=== PATIENT | male | born 1965 | race Caucasian/White ===

== ENCOUNTER 2020-09-21 14:57 | Outpatient (CLI) | payer BC, SELFPAY ==
--- NOTE | 2020-09-21 15:07 | DI.RAD_ITS ---
Exam(s) XR SHOULDER LT COMPLETE 2+V EXAM: XR SHOULDER LT COMPLETE 2+V CLINICAL HISTORY: PAIN LT SHOUDLER M25.512 TECHNIQUE: COMPARISON: No exams were available for comparison FINDINGS: Five views were obtained. There is moderate narrowing of the cartilaginous joint space of the glenoh umeral joint. There is mild subchondral sclerosis the glenoid. Mild marginal osteophyte formation o f glenoid noted inferiorly. Mild degenerative changes of the AC joint also noted. Humeral head appe ars essentially intact. IMPRESSION: DJD glenohumeral joint as described above. RADIATION DOSE DELIVERED: Total DLP
== END 2020-09-21 15:17 ==
PROVIDERS: Visit Provider Physician Assistant Medical
DX: M19.012 Primary osteoarthritis, left shoulder (principal)
CPT/HCPCS: 73030

== ENCOUNTER 2021-05-06 02:12 | Outpatient (CLI) | payer BC, SELFPAY ==
--- NOTE | 2021-05-06 06:30 | DI.MRI_ITS ---
Exam(s) MR UPPER JOINT LT WO EXAM: MR UPPER JOINT LT WO CLINICAL HISTORY: L SHOULDER PAIN,tendinitis lt shoulder,slap lesion,m75.22,s43.432a TECHNIQUE: Multiplanar multisequence MRI of the shoulder was performed. COMPARISON: CR XR SHOULDER LT COMPLETE 2+V from 09/21/2020 FINDINGS: Plain films of September 2020 were reviewed MARROW:There is no evidence of fracture, Hill-Sachs deformity, nor osseous Bankart lesion. However, there is a conglomeration of degenerative cysts evident in the posterolateral aspect of the humeral h ead, measuring 2.3 cm craniocaudal by 1 cm wide by 1 cm AP. There is only minimal surrounding bone e adalid. There is also small degenerative subarticular cyst in the osseous glenoid. ROTATOR CUFF MECHANISM: AC JOINT/ACROMIUM: Minimal degenerative changes.. There is no evidence of os acromiale. Supraspinatus: Tendinosis. There is small focus of signal abnormality on the articular side of the s upraspinatus at approximately the mid humeral head level. Probably small partial-thickness tear. Al so some increased signal the tendon above the greater tuberosity but no full-thickness tear. In vincent tion to the above described prominent degenerative cysts in the posterior humeral head there is also a smaller 4 millimeter degenerative cyst in the superior aspect of the humerus subjacent to the supra spinatus. There is no evidence of supraspinatus atrophy. There is a sliver of fluid in the subacrom ial bursa. Infraspinatus: Intact. No evidence of tear nor muscle atrophy. Teres Minor: Intact. No evidence of tear nor muscle atrophy. Subscapularis/anterior cuff: Intact. No abnormal signal at the level of the multipennate insertional fibers. No significant tear nor atrophy. BICEPS TENDON: Exhibits normal position within the intertubercular groove, although there is a small amount of fluid within the tendon sheath at this level. The intra-articular aspect of the biceps aniceto ears intact LABRUM: There is a thin line of fluid signal in the superior labrum posterior to the biceps tendon at tachment site this is seen on 2 consecutive coronal images and may represent an element of SLAP-tear versus sublabral recess. There is also some mild signal abnormality in the posterior labrum. Anteri or labrum including anteroinferior aspect appears intact. Inferior labrum appears intact as does the inferior glenohumeral ligament. There is no evidence of paralabral cyst. GLENOHUMERAL JOINT: Mild degenerative changes. No joint effusion nor obvious loose intra-articular b odies. No chondral defects. No osteophytes. Degenerative subarticular cysts as described above. No evidence of capsular tear. The inferior glenohumeral ligament is intact. QUADRILATERAL SPACE: No evidence of mass in the region of the axillary nerve and dorsal circumflex hu meral vessels. Visualized triceps muscle at this level appears unremarkable. IMPRESSION: 1. In this patient who has apparently had remote left shoulder surgery there is mild tendinosis signa l evident in the supraspinatus and at the mid humeral head level there is a small area of signal abno rmality on the articular side surface of the supraspinatus which may be a small partial-thickness tea r. Although there is a sliver of fluid in the subacromial bursa, does not appear to be evidence of a full-thickness tear of the supraspinatus. Other muscles of the rotator cuff mechanism are intact. 2. Biceps tendon is intact and nondisplaced. Contains a small amount of fluid in its tendon sheath w ithin the intertubercular groove. 3. Subtle evidence of SLAP-type tear in the superior labrum versus anatomic inferior recess. No evid ence of paralabral cyst. 4. No evidence of prominent joint effusion or loose intra-articular body. There are mild degenerati ve changes. No osteophytes. However, there is a conglomeration of degenerative subarticular cysts i n the posterior aspect of the humeral head at and subjacent to the greater tuberosity level. There i s minimal surrounding bone edema. DATA REPOSITORY:
== END 2021-05-06 02:32 ==
PROVIDERS: PCP Family Medicine; Visit Provider Student in an Organized Health Care Education/Training Program
DX: M25.512 Pain in left shoulder; M75.22 Bicipital tendinitis, left shoulder; M75.82 Other shoulder lesions, left shoulder; S43.432A Superior glenoid labrum lesion of left shoulder, initial encounter; M19.012 Primary osteoarthritis, left shoulder; X58.XXXA Exposure to other specified factors, initial encounter
CPT/HCPCS: 73221

== ENCOUNTER 2021-05-19 07:34 | Emergency (ER) | payer BC, SELFPAY ==
[2021-05-19] VITALS (30 sets, daily range): BP systolic 114–140; BP diastolic 65–81; PULSE 62–79; RESP 12–28; TEMP 36.3; O2SAT 97–100
--- NOTE | 2021-05-19 07:30 | RT.EKG_ITS ---
APPROVED REPORT Exam: Resting ECG Reason for Exam: chest tightness Patient Location: E HR:72 bpm ECG Measurements Heart Rate 72 AXIS MD 184 P 104 QRSd 123 QRS 29 QT 413 T 32 QTc 453 Conclusion Sinus rhythm...normal P axis, V-rate 60- 99 IVCD, consider RBBB...QRSd>120mS, terminal axis(90,270). Sinus. RBBB, no STEMI. I have reviewed and interpreted ECG and agree with software generated interpretation.
--- NOTE | 2021-05-19 07:47 | ED.GENADUL_ITS ---
Discharge Plan Disposition Patient Disposition: HOME Condition: Improving Discharge Details Clinical Impression: Confusion, Chest pain Primary Care Provider: Roby Sheriff ED Provider: Ledy Pugh Home Meds and New Rx's Prescriptions: New sucralfate [Carafate] 1 gram tablet 1 gm PO QACHS Qty: 14 0RF Discharge Instructions Instructions: Chest Pain (ED), Diet for Stomach Ulcers and Gastritis (ED), GERD (Gastroesophageal Reflux Disease) (ED), Altered Mental Status (ED) Additional Instructions: Your lab work, EKGs and imaging today is reassuring and shows no evidence of acute concerning or significant findings. Call your primary care doctor's office tomorrow to schedule follow-up appointment for reevaluation and for referral for other outpatient studies such as MRI brain for your confusion and/or a stress test and/or upper endoscopy for your chest pain for further evaluations of your symptoms if they persist or worsen. You were given a prescription for Carafate which can help with chest or abdominal pain related to a stomach ulcer. If you have any return of your chest pain, you can consider taking an [id number] Pepcid or Prilosec in addition to Carafate as needed. Return immediately to the emergency department if you develop any worsening or new concerning symptoms. You were tested for the COVID-19 virus today. Please quarantine until your Covid test result is available and if confirmed to be negative. Discharge Data Discharge Date/Time-TO BE ENTERED AT DEPARTURE: 05/19/21 12:34 Discharge Physician: Ledy Pguh Medical Decision Making 0800 -- 55-year-old male with no significant past medical history who presents to the ED with a complaint of feeling off all day yesterday , and an episode of sweating and substernal chest tightness after awakening this morning. He denies any chest pain at present and states he still feels off . Vitals are within normal limits. EKG notes a rate of 72, sinus, right bundle branch block, no STEMI. Patient appears somewhat slowed in his responses but otherwise has no focal deficits and is oriented x3. Differential diagnosis includes dehydration, electrolyte abnormality, seizure, CVA, anxiety, panic attack, GERD, gastritis, etc. History and presentation does not appear consistent with ACS or dissection. Considering his age, will obtain screening labs, plan for delta troponin, and obtain CTA head and neck and chest x-ray and give a dose of Pepcid and Ativan and reassess. 1000 --labs and imaging reviewed and unremarkable. Normal white blood cell count. Normal electrolytes. Troponin negative. TSH within normal limits. Urinalysis negative. Chest x-ray and CTA head and neck negative. 1130 --repeat EKG unchanged. Repeat troponin negative. Patient reassessed and he states he feels better. He denies any return of chest pain and has had no chest pain while in the emergency department. Patient states he feels comfortable going home. He was advised to limit alcohol and potential allergic triggers. Discussed that his history and presentation does not appear consistent with acute CVA or ACS, but recommended to follow-up with the PCP this week for reevaluation and consideration for outpatient brain MRI if his confusion symptoms persist and/or EGD/stress test if his chest pain persists or worsens. A prescription for Carafate was given. Usual and customary return precautions given prior to discharge. Medical Records Medical records reviewed: Yes I reviewed the patient's medical records. Imaging Data Radiologic Study: Radiologist's impression: CT Angiography Head With Contrast, Arteriography Exam date and time: 05/19/2021 8:30 AM Age: 55 years old Clinical indication: Pain; Other: Dizziness, confusion, R/O acute CVA TECHNIQUE: Imaging protocol: Computed tomography angiography of the head with contrast. Exam focused on the arteries. 3D rendering (Not supervised by radiologist): MIP and/or 3D reconstructed images were created by the technologist. Contrast material: OMNIPAQUE 350; Contrast volume: 100 ml; Contrast route: INTRAVENOUS (IV);? COMPARISON: MR UPPER JOINT LT WO 05/06/2021 8:47 AM FINDINGS: ANTERIOR CIRCULATION: Right internal carotid artery: Unremarkable. Intracranial segment is patent with no significant stenosis. No aneurysm. Right middle cerebral artery: Unremarkable. No occlusion or significant stenosis. No aneurysm.? Right anterior cerebral artery: Unremarkable. No occlusion or significant stenosis. No aneurysm.? Left internal carotid artery: Unremarkable. Intracranial segment is patent with no significant stenosis. No aneurysm. Left middle cerebral artery: Unremarkable. No occlusion or significant stenosis. No aneurysm.? Left anterior cerebral artery: Unremarkable. No occlusion or significant stenosis. No aneurysm.? POSTERIOR CIRCULATION: Right vertebral artery: Unremarkable. No occlusion or significant stenosis. No aneurysm.? Left vertebral artery: Unremarkable. No occlusion or significant stenosis. No aneurysm.? Basilar artery: Unremarkable. No occlusion or significant stenosis. No aneurysm. Right posterior cerebral artery: Unremarkable. No occlusion or significant stenosis. No aneurysm.? Left posterior cerebral artery: Unremarkable. No occlusion or significant stenosis. No aneurysm.? Brain: No definite mass, mass effect, or midline shift. Cerebral ventricles: No ventriculomegaly. Bones/joints: Unremarkable. No acute fracture. Soft tissues: Unremarkable. IMPRESSION: No large vessel stenosis or occlusion. CT Angiography Neck With Contrast Exam date and time: 05/19/2021 8:30 AM Age: 55 years old Clinical indication: Pain; Other: Dizziness, confusion, R/O acute CVA TECHNIQUE: Imaging protocol: Computed tomography angiography of the neck with contrast. 3D rendering (Not supervised by radiologist): MIP and/or 3D reconstructed images were created by the technologist. Contrast material: OMNIPAQUE 350; Contrast volume: 100 ml; Contrast route: INTRAVENOUS (IV);? COMPARISON: MR UPPER JOINT LT WO 05/06/2021 8:47 AM FINDINGS: Right common carotid artery: No stenosis. No dissection or occlusion. Right internal carotid artery: No stenosis of the extracranial segment. No dissection or occlusion. Right external carotid artery: No occlusion or stenosis of the origin.? Left common carotid artery: No stenosis. No dissection or occlusion. Left internal carotid artery: No stenosis of the extracranial segment. No dissection or occlusion. Left external carotid artery: No occlusion or stenosis of the origin.? Right vertebral artery: No stenosis. No dissection or occlusion. Left vertebral artery: No stenosis. No dissection or occlusion. Soft tissues: Normal. No significant soft tissue swelling. Bones/joints: No acute fracture. IMPRESSION: No stenosis or occlusion. XR Chest Exam date and time: 05/19/2021 8:54 AM Age: 55 years old Clinical indication: Pain; Other: Dizziness, chest tightness, R/O acute disease TECHNIQUE: Imaging protocol: XR of the chest. Views: 2 views. COMPARISON: No relevant prior studies for comparison. FINDINGS: Lungs: There is minimal nonspecific biapical pleuroparenchymal scarring. Otherwise, the lungs are clear and well aerated bilaterally. No consolidation or pulmonary edema. Pleural spaces: Unremarkable. No pleural effusion or pneumothorax. Heart/Mediastinum: Heart size is normal. The thoracic aorta is mildly tortuous. ?The candace are not enlarged. Bones/joints: Mild degenerative changes. No acute osseous abnormality. IMPRESSION: No active disease in the chest. Lab Data Lab results reviewed: Yes I reviewed the patient's lab results. Labs: Laboratory Tests Range/Units 05/19/21 05/19/21 05/19/21 07:45 07:45 07:45 WBC (4.4-10.8) 10^3/uL 5.60 RBC (4.36-5.78) 10^6/uL 4.56 Hgb (13.5-17.5) g/dL 14.6 Hct (40.0-50.0) % 43.4 MCV (80-95) fL 95.2 H MCH (27.0-33.0) pg 32.0 MCHC (32.0-36.0) % 33.6 RDW (11.8-14.1) % 11.3 L Plt Count (130-400) 10^3/uL 217 MPV (8.0-11.0) fL 10.2 Immature Gran % 0.4 Neutrophils % 44.4 Lymphocytes % 44.3 Monocytes % 7.5 Eosinophils % 2.1 Basophils % 1.3 Nucleated RBC % % 0 Absolute Neutrophils (1.2-6.7) 10^3/uL 2.49 Absolute Lymphocytes (1.2-3.4) 10^3/uL 2.48 Absolute Monocytes (0.1-0.8) 10^3/uL 0.42 Absolute Eosinophils (0.0-0.7) 10^3/uL 0.12 Absolute Basophils (0.0-0.2) 10^3/uL 0.07 Sodium (136-145) mmol/L 140 Potassium (3.5-5.1) mmol/L 3.6 Chloride (98-107) mmol/L 102 Carbon Dioxide (21.0-32.0) mmol/L 29.0 Anion Gap (3-11) mmol/L 9.0 BUN (7-18) mg/dL 19 H Creatinine (0.70-1.30) mg/dL 1.1 Estimated GFR/1.73 m2 (mL/min/1.73m2) >= 60.00 Glucose (74-106) mg/dL 106 Calcium (8.5-10.1) mg/dL 9.0 Magnesium (1.8-2.4) mg/dL 2.1 Total Bilirubin (0.2-1.0) mg/dL 0.9 AST (15-37) U/L 18 ALT (16-63) U/L 26 Alkaline Phosphatase (46-116) U/L 82 Troponin I (<or=60) ng/L < 50 Total Protein (6.4-8.2) g/dL 7.5 Albumin (3.4-5.0) g/dL 4.2 TSH (0.36-3.74) uIU/mL 2.63 Urine Color (Yellow) Urine Clarity (Clear) Urine pH (5-8) Ur Specific [place] (1.005-1.025) Urine Protein (Negative) mg/dL Urine Ketones (Negative) mg/dL Urine Blood (Negative) Urine Nitrite (Negative) Urine Bilirubin (Negative) Urine Urobilinogen (Up TO 0.2) EU/dL Ur Leukocyte Esterase (Negative) Urine Glucose (Negative) mg/dL SARS-CoV-2 (PCR) (Negative) Nasopharyn COVID-19 PCR Ref Test Perform Site Range/Units 05/19/21 05/19/21 05/19/21 10:00 10:45 12:02 WBC (4.4-10.8) 10^3/uL RBC (4.36-5.78) 10^6/uL Hgb (13.5-17.5) g/dL Hct (40.0-50.0) % MCV (80-95) fL MCH (27.0-33.0) pg MCHC (32.0-36.0) % RDW (11.8-14.1) % Plt Count (130-400) 10^3/uL MPV (8.0-11.0) fL Immature Gran % Neutrophils % Lymphocytes % Monocytes % Eosinophils % Basophils % Nucleated RBC % % Absolute Neutrophils (1.2-6.7) 10^3/uL Absolute Lymphocytes (1.2-3.4) 10^3/uL Absolute Monocytes (0.1-0.8) 10^3/uL Absolute Eosinophils (0.0-0.7) 10^3/uL Absolute Basophils (0.0-0.2) 10^3/uL Sodium (136-145) mmol/L Potassium (3.5-5.1) mmol/L Chloride (98-107) mmol/L Carbon Dioxide (21.0-32.0) mmol/L Anion Gap (3-11) mmol/L BUN (7-18) mg/dL Creatinine (0.70-1.30) mg/dL Estimated GFR/1.73 m2 (mL/min/1.73m2) Glucose (74-106) mg/dL Calcium (8.5-10.1) mg/dL Magnesium (1.8-2.4) mg/dL Total Bilirubin (0.2-1.0) mg/dL AST (15-37) U/L ALT (16-63) U/L Alkaline Phosphatase (46-116) U/L Troponin I (<or=60) ng/L < 50 Total Protein (6.4-8.2) g/dL Albumin (3.4-5.0) g/dL TSH (0.36-3.74) uIU/mL Urine Color (Yellow) Yellow Urine Clarity (Clear) Clear Urine pH (5-8) 6.0 Ur Specific [place] (1.005-1.025) 1.010 Urine Protein (Negative) mg/dL Negative Urine Ketones (Negative) mg/dL Negative Urine Blood (Negative) Negative Urine Nitrite (Negative) Negative Urine Bilirubin (Negative) Negative Urine Urobilinogen (Up TO 0.2) EU/dL 0.2 Ur Leukocyte Esterase (Negative) Negative Urine Glucose (Negative) mg/dL Negative SARS-CoV-2 (PCR) (Negative) Negative Nasopharyn COVID-19 PCR Not Applicable Ref Test Perform Site [id number] [facility] ECG Data Attestation: I personally reviewed and interpreted this ECG (s) as follows: Interpretation: #1 -- Rate of 72, sinus, right bundle branch block, no STEMI. #2 -- Rate of 68, sinus, right bundle branch block, no STEMI. HPI General Date/Time Provider Initiated Documentation: 05/19/21 07:36 . Limitations to Documentation: no limitations . Information obtained by: patient . HPI Narrative: Patient is a 55-year-old male with history of daily alcohol use who presents for feeling off since yesterday with an episode of sweating and chest tightness after awakening this morning. Patient states he felt off all day yesterday and describes that he felt like he was staring at things for too long. He states he had 2 margaritas, shot of whiskey and 2 marijuana tinctures last night. He states he usually has 2-3 alcoholic drinks nightly. He denies any daily marijuana or other drug use. He states this morning he woke up and walked to the kitchen to get a coffee he felt sweating and substernal chest tightness that was 5/10. He states the episodes have lasted approximately 5 to 10 minutes and occurred multiple times over the last 90 minutes. He denies any chest pain at present. He states the only symptom he feels right now is feeling off . He denies any aggravating or alleviating symptoms. He states he has not taken any medication for his symptoms. He denies any radiation of pain, nausea, shortness of breath, fever, cough, vomiting or diarrhea. He denies any known exposure to coronavirus. He states he has carbon monoxide detectors at home and thinks that they are working properly. He denies any recent injuries, new medications, new diagnoses recently. Related Data Home Medications Medication Instructions Recorded Confirmed sucralfate 1 gram tablet (Carafate) 1 gm PO QACHS #14 tab 05/19/21 Previous Rx's Medication Instructions Recorded sucralfate 1 gram tablet (Carafate) 1 gm PO QACHS #14 tab 05/19/21 Allergies Allergy/AdvReac Type Severity Reaction Status Date / Time No Known Allergies Allergy Verified 05/08/21 08:50 General Stated Complaint: Chest Pain Review of Systems All systems reviewed & are unremarkable except as noted in HPI and below Constitutional Constitutional: Reports as per HPI, Denies chills, Denies excessive sweating, Denies fatigue and Denies fever(s) Eyes Eyes: Denies blurry vision ENT Ears, Nose, Mouth, and Throat: Reports dizziness, Denies sore throat and Denies throat swelling Cardiovascular Cardiovascular: Reports chest pain and Denies dyspnea Respiratory Respiratory: Denies cough and Denies dyspnea Gastrointestinal Gastrointestinal: Denies abdominal pain, Denies diarrhea and Denies vomiting Genitourinary Genitourinary: Denies hematuria and Denies dysuria Musculoskeletal Musculoskeletal: Denies back pain and Denies numbness Integumentary/Breasts Skin/Breast: Denies lesions and Denies rash Neurologic Neurologic: Denies behavioral changes, Denies confusion, Reports dizziness, Denies localized weakness, Denies numbness and Reports other (feels out of it) Psychiatric Psychiatric: Denies behavioral changes, Denies confusion and Denies depression Endocrine Endocrine: Denies excessive sweating and Denies fatigue Hematologic/Lymphatic Hematologic/Lymphatic: Denies easy bruising and Denies lymphadenopathy Allergic/Immunologic Allergic/Immunologic: Denies throat swelling PFSH All Active Problems (Updated 05/19/21 @ 12:01 by Ledy Pugh DO) Confusion (Acute) Chest pain (Acute) Impingement syndrome of left shoulder (Acute) Tendinitis of long head of biceps brachii of left shoulder (Acute) Medical History (Updated 05/19/21 @ 12:01 by Ledy Pugh DO) No significant past medical history Surgical History (Updated 05/19/21 @ 08:20 by Ledy Pugh DO) H/O thumb surgery tendon repair History of knee surgery Meniscus repair SLAP lesion of left shoulder Social History Smoking/Tobacco Use Status: Former Tobacco Use Smoking risk assessment performed?: Yes Drug use: Occasionally Substance use type: marijuana Exam Const General: cooperative and healthy appearing Orientation: alert, awake and oriented x3 HENMT Head: normal to inspection Ears: hearing grossly normal bilaterally, external ears normal and TM's normal bilaterally General nose exam: external nose normal Face and sinus: normal facial exam Mouth: oral mucosae normal Teeth and gingiva: dentition normal Throat: posterior oropharynx normal Eyes General: appearance normal, both eyes and all related structures Eyelids: eyelids normal Pupils: PERRL EOM: EOM intact bilaterally Neck Neck: normal visual inspection Lymphatic: no lymphadenopathy noted Chest Chest: normal inspection of the chest Resp Effort & Inspection: normal respiratory effort and able to speak in complete sentences Auscultation: clear to auscultation bilaterally Cardio Rate: regular rate Rhythm: regular rhythm GI Inspection: normal to inspection Palpation: soft, not firm, no guarding, no hepatosplenomegaly, no masses and nontender Auscultation: normal bowel sounds Back/Spine/Pelvis Back: no CVA tenderness Thoracic/Lumbar Spine: thoracic and lumbar spine normal to inspection Skin General skin exam: no rashes or lesions noted Neuro General: patient alert, patient awake, gait normal, moves all extremities, no meningeal signs and no focal motor deficits Cranial Nerves: CN's II-XI intact bilaterally Cognition: normal cognition Speech: speech normal Gait: normal gait Motor: muscle tone normal throughout and strength 5/5 throughout Sensory Exam: no sensory deficits noted Extrem General: normal to inspection, full ROM and capillary refill normal Psych Appearance: grossly normal Mental Status: mental status grossly normal Speech and Movement: speech and movement normal Affect: normal affect Thought Process: normal
[2021-05-19 07:53] LABS: Abs Immature Grans 0.02 10^3/uL (0.0-0.06); Absolute Basophil Count 0.07 10^3/uL (0.0-0.2); Absolute Eosinophil Count 0.12 10^3/uL (0.0-0.7); Absolute Lymphocyte Count 2.48 10^3/uL (1.2-3.4); Absolute Monocyte Count 0.42 10^3/uL (0.1-0.8); Absolute Neutrophil Count 2.49 10^3/uL (1.2-6.7); Basophils % 1.3; Eosinophils % 2.1; HCT 43.4 % (40.0-50.0); HGB 14.6 g/dL (13.5-17.5); Immature Grans % 0.4; Lymphocytes % 44.3; MCHC 33.6 % (32.0-36.0); MCV 95.2 fL (80-95); MPV 10.2 fL (8.0-11.0); Monocytes % 7.5; Neutrophils % 44.4; Nucleated RBC 0 %; Platelet Count 217 10^3/uL (130-400); RBC 4.56 10^6/uL (4.36-5.78); RDW 11.3 % (11.8-14.1); RDW-SD 39.8 fL
[2021-05-19 08:08] LABS: ALT 26 U/L (16-63); AST 18 U/L (15-37); Albumin 4.2 g/dL (3.4-5.0); Alkaline Phosphatase 82 U/L (46-116); BUN 19 mg/dL (7-18); Bilirubin, Total 0.9 mg/dL (0.2-1.0); CREATININE 1.1 mg/dL (0.70-1.30); Chloride 102 mmol/L (98-107); Glucose 106 mg/dL (74-106); Magnesium 2.1 mg/dL (1.8-2.4); Potassium 3.6 mmol/L (3.5-5.1); Sodium 140 mmol/L (136-145); Total Protein 7.5 g/dL (6.4-8.2); Troponin I < 50 ng/L (<or=60)
--- NOTE | 2021-05-19 08:15 | DI.RAD_ITS ---
Exam(s) XR CHEST 2V PA LATERAL EXAM: XR CHEST 2V PA LATERAL CLINICAL HISTORY: dizziness, chest tightness, r/o acute disease. TECHNIQUE: 2D digital imaging was performed. COMPARISON: No exams were available for comparison FINDINGS: 2 views: Heart size is normal. The mediastinum is not widened. Lungs are clear. No infiltrates nor pleural effusions. IMPRESSION: No acute pulmonary findings. DATA REPOSITORY: RADIATION DOSE DELIVERED:
--- NOTE | 2021-05-19 08:15 | DI.CT_ITS ---
Exam(s) CT BRAIN NECK CTA EXAM: CT BRAIN NECK CTA CLINICAL HISTORY: dizziness, confusion, r/o acute cva. TECHNIQUE: Imaging Protocol: Axial CT angiography was performed with multi-slice acquisition and mu lti-planar and/or 3D reconstructions. CONTRAST MATERIAL: Intravenous: Omnipaque 350 Contrast volume:structured data in ml COMPARISON: No exams were available for comparison FINDINGS: CTA Neck W: Aortic arch anatomy: The aortic arch anatomy is conventional. Anterior circulation: Both common carotid arteries ascend with normal luminal diameters. No significant atherosclerotic di sease nor stenosis in these vessels nor within the carotid bulbs and proximal internal carotid arteri es. Both internal carotid arteries are nicely patent in the upper neck. No intraluminal thrombus. No dissection. Posterior circulation: Both vertebral arteries originated conventional fashion off the subclavian arteries. No obvious sten osis at their origins and both vertebral arteries ascend with normal luminal diameters in the foramen transversarium with no evidence of intraluminal thrombus nor dissection. At the skull base both camille tebral arteries contribute to the formation of the basilar artery. CTA Brain W: Anterior circulation: Both internal carotid arteries are patent in the skull base and cavernous sinuses. Supraclinoid aspe cts are patent. The left A1 segment is patent-dominant. Anterior cerebral arteries are patent. No aneurysm at the level of the anterior communicating artery. Middle cerebral arteries are patent bilaterally. No intraluminal thrombus nor tight stenosis.. Posterior circulation: Distally basilar artery gives off superior cerebellar arteries. Terminates as the left posterior cer ebral artery. Right posterior cerebral artery is predominantly fed by posterior communicating artery on the right side of the [id number]-zm-Yviuhn.. There is no aneurysm of the tip of the basilar artery. CT BRAIN: There is no evidence of intracranial hemorrhage, mass effect, or shift of midline structures. There are no extra-axial fluid collections. Ventricles are not enlarged or shifted. There are no ring enh ancing lesions in the brain and no abnormal meningeal enhancement. IMPRESSION: 1. Patent carotid and vertebral arteries in the neck. No significant stenosis. No dissection 2. Patent intracranial arteries. No significant stenosis. No aneurysms. 3. No acute intracranial findings. No ring enhancing lesions in the brain RADIATION DOSE DELIVERED: 2,390.43mGy.cm Total DLP DATA REPOSITORY: All CT scans at this facility are submitted to the National Radiology Data Registry (NRDR) Dose Index Registry (DIR) with the [employer] (ACR). RADIATION OPTIMIZATION: All CT scans at this facility use at least one of these dose optimization te chniques: automated exposure control; mA and/or kV adjustment per patient size (includes targeted exa ms where dose is matched to clinical indication); or iterative reconstruction.
--- NOTE | 2021-05-19 09:00 | RT.EKG_ITS ---
APPROVED REPORT Exam: Resting ECG Reason for Exam: dizziness, chest pain Patient Location: E HR:68 bpm ECG Measurements Heart Rate 68 AXIS KS 194 P 78 QRSd 120 QRS 17 QT 418 T 21 QTc 445 Conclusion Sinus rhythm...normal P axis, V-rate 60- 99 IVCD, consider RBBB...QRSd>120mS, terminal axis(90,270). Sinus. RBBB. No STEMI. I have reviewed and interpreted ECG and agree with software generated interpretation.
--- NOTE | 2021-05-19 09:08 | DI.VRAD_ITS ---
PROCEDURE INFORMATION: Exam: XR Chest Exam date and time: 05/19/2021 8:54 AM Age: 55 years old Clinical indication: Pain; Other: Dizziness, chest tightness, R/O acute disease TECHNIQUE: Imaging protocol: XR of the chest. Views: 2 views. COMPARISON: No relevant prior studies for comparison. FINDINGS: Lungs: There is minimal nonspecific biapical pleuroparenchymal scarring. Otherwise, the lungs are clear and well aerated bilaterally. No consolidation or pulmonary edema. Pleural spaces: Unremarkable. No pleural effusion or pneumothorax. Heart/Mediastinum: Heart size is normal. The thoracic aorta is mildly tortuous. The candace are not enlarged. Bones/joints: Mild degenerative changes. No acute osseous abnormality. IMPRESSION: No active disease in the chest. Dictated and Authenticated by: Linda Britton MD. Ordering:GHADA Villafana MD
[2021-05-19] MEDS: LORazepam 2 MG/ML VIAL 0.5 MG IVP (09:13)
[2021-05-19] MEDS: Famotidine 20 MG/2 ML VIAL IVP (09:14)
[2021-05-19] MEDS: Normal Saline 1,000 ML 1000 ML IV ×2 (09:14→09:59)
[2021-05-19 09:39] LABS: TSH (W/Ref FT4) 2.63 uIU/mL (0.36-3.74)
--- NOTE | 2021-05-19 09:52 | DI.VRAD_ITS ---
PROCEDURE INFORMATION: Exam: CT Angiography Head With Contrast, Arteriography Exam date and time: 05/19/2021 8:30 AM Age: 55 years old Clinical indication: Pain; Other: Dizziness, confusion, R/O acute CVA TECHNIQUE: Imaging protocol: Computed tomography angiography of the head with contrast. Exam focused on the arteries. 3D rendering (Not supervised by radiologist): MIP and/or 3D reconstructed images were created by the technologist. Contrast material: OMNIPAQUE 350; Contrast volume: 100 ml; Contrast route: INTRAVENOUS (IV); COMPARISON: MR UPPER JOINT LT WO 05/06/2021 8:47 AM FINDINGS: ANTERIOR CIRCULATION: Right internal carotid artery: Unremarkable. Intracranial segment is patent with no significant stenosis. No aneurysm. Right middle cerebral artery: Unremarkable. No occlusion or significant stenosis. No aneurysm. Right anterior cerebral artery: Unremarkable. No occlusion or significant stenosis. No aneurysm. Left internal carotid artery: Unremarkable. Intracranial segment is patent with no significant stenosis. No aneurysm. Left middle cerebral artery: Unremarkable. No occlusion or significant stenosis. No aneurysm. Left anterior cerebral artery: Unremarkable. No occlusion or significant stenosis. No aneurysm. POSTERIOR CIRCULATION: Right vertebral artery: Unremarkable. No occlusion or significant stenosis. No aneurysm. Left vertebral artery: Unremarkable. No occlusion or significant stenosis. No aneurysm. Basilar artery: Unremarkable. No occlusion or significant stenosis. No aneurysm. Right posterior cerebral artery: Unremarkable. No occlusion or significant stenosis. No aneurysm. Left posterior cerebral artery: Unremarkable. No occlusion or significant stenosis. No aneurysm. Brain: No definite mass, mass effect, or midline shift. Cerebral ventricles: No ventriculomegaly. Bones/joints: Unremarkable. No acute fracture. Soft tissues: Unremarkable. IMPRESSION: No large vessel stenosis or occlusion. PROCEDURE INFORMATION: Exam: CT Angiography Neck With Contrast Exam date and time: 05/19/2021 8:30 AM Age: 55 years old Clinical indication: Pain; Other: Dizziness, confusion, R/O acute CVA TECHNIQUE: Imaging protocol: Computed tomography angiography of the neck with contrast. 3D rendering (Not supervised by radiologist): MIP and/or 3D reconstructed images were created by the technologist. Contrast material: OMNIPAQUE 350; Contrast volume: 100 ml; Contrast route: INTRAVENOUS (IV); COMPARISON: MR UPPER JOINT LT WO 05/06/2021 8:47 AM FINDINGS: Right common carotid artery: No stenosis. No dissection or occlusion. Right internal carotid artery: No stenosis of the extracranial segment. No dissection or occlusion. Right external carotid artery: No occlusion or stenosis of the origin. Left common carotid artery: No stenosis. No dissection or occlusion. Left internal carotid artery: No stenosis of the extracranial segment. No dissection or occlusion. Left external carotid artery: No occlusion or stenosis of the origin. Right vertebral artery: No stenosis. No dissection or occlusion. Left vertebral artery: No stenosis. No dissection or occlusion. Soft tissues: Normal. No significant soft tissue swelling. Bones/joints: No acute fracture. IMPRESSION: No stenosis or occlusion. REFERENCES: NASCET CRITERIA. The degree of internal carotid artery stenosis is based on NASCET criteria. Normal is no stenosis. Mild is less than 50% stenosis. Moderate is 50-69% stenosis. Severe is 70% to 99% stenosis. Total occlusion is no detectable patent lumen. Dictated and Authenticated by: Karine Valdes MD. Ordering:GHADA Villafana MD
[2021-05-19 10:09] LABS: Bilirubin Negative (Negative); Blood Negative (Negative); Clarity Clear (Clear); Glucose Negative (Negative); Ketones Negative (Negative); Leukocyte Esterase Negative (Negative); Nitrite Negative (Negative); Urobilinogen 0.2 EU/dL (Up TO 0.2)
[2021-05-19 11:08] LABS: Troponin I < 50 ng/L (<or=60)
[2021-05-21 13:36] LABS: COVID-19 RT-PCR UVMMC Result Negative (Negative)
--- NOTE | 2021-05-21 17:34 | NUR.NOTE ---
patient notified of negative covid results.
== END 2021-05-19 12:34 | disposition home or self-care (01) ==
PROVIDERS: Emergency Provider Physician Assistant; PCP Family Medicine
DX: R41.0 Disorientation, unspecified (principal); R07.9 Chest pain, unspecified; R42 Dizziness and giddiness; R07.89 Other chest pain; Z20.822 Contact with and (suspected) exposure to COVID-19
CPT/HCPCS: 36415; 70496; 70498; 80053; 93005; 96361; 96374; 96375; 99284; 99285; U0003; 71046; 81003; 83735; 84443; 84484; 85025; 93010; J2060

== ENCOUNTER 2021-05-23 00:31 | Outpatient (CLI) | payer BC, SELFPAY ==
--- NOTE | 2021-05-23 09:00 | ETT_ITS ---
APPROVED REPORT Exam: Exercise Treadmill Patient Location: Out-Patient Room/Bed: Stress Nurse: Azalia Lopez RN Ordering Provider:EDD SHERMAN, Contact Number: [phone] BMI: 23.12 Baseline Rhythm: Sinus Rhythm Comment: IVCD, diffuse ST elevations inferior and anterior leads Indications: Atypical chest discomfort Medical History Medical History: DJD, osteoarthritis R hip, ETOH dependence Cardiac Medications: None Allergies: NKA Cardiac Risk Factors: Occasional smoker Previous Cardiac Procedures: None Pretest Chest Pain Characteristics: None Exercise History: Sedentary Physical Disabilities: None Lung Sounds: Clear to auscultation Heart Sounds: Regular Stress Test Details Test: Exercise stress testing was performed using a Cole protocol. Rest Stress HR Resting HR Supine: 69 bpm Max Heart Rate (APMHR): 163 bpm Resting HR Standin bpm Target HR (85% APMHR): 138 bpm Max HR Achieved: 143 bpm % of APMHR: 87 Recovery HR: 85 bpm HR response to stress: Normal HR response to stress BP Resting BP Supine: 114/72 mmHg Resting BP Standin/68 mmHg Max BP: 164/76 mmHg Recovery BP: 120/74 mmHg BP response to stress: Normal blood pressure response to stress. ECG Resting ECG: Sinus Rhythm, IVCD Ectopy: None Comment: Diffuse ST elevations inferior and anterior leads Stress ECG: Sinus Tachycardia ST Change: No significant ST segment changes noted Arrhythmia: Occasional PVCs Recovery ECG: Sinus Rhythm Recovery ST Change: No significant ST segment changes noted Recovery Arrhythmia: Rare PVC Clinical Reason for Termination: Fatigue Stress Symptoms: General Fatigue, Dyspnea Exercise duration: 11 min58 sec Highest Stage Reached: Stage 4: 4.2 mph at 16% grade. Exercise capacity: 13.48 METs Chamberlain Treadmill Score: 10.9 Rate Pressure Product: 83204 Stress ECG Conclusion 1. The resting electrocardiogram showed a borderline interventricular conduction delay 2. Patient exercised on the Cole protocol and completed a workload of 13.48 METS, stopping due to fa tigue and dyspnea 3. Normal heart rate and blood pressure response to exercise. Patient achieved 87% of predicted hear t rate for age 4. There was no electrocardiographic evidence of myocardial ischemia 5. Rare PVCs were seen Chamberlain Treadmill Score is 10.9 which is Low risk. Stress Test Summary STAGE Time (mins) Speed (mph) Grade (%) HR BP SYMPTOMS METS Supine 69 114/72 Standing 80 112/68 SpO2 98% 1 3 1.7 10 95 122/72 SpO2 98% 4.6 2 6 2.5 12 103 128/70 SpO2 98% 7 3 9 3.4 14 118 Mild SOB, SpO2 99% 10.2 4 12 4.2 16 143 Mild SOB, SpO2 98% 12.9 1 min recovery 111 164/76 SOB resolved, SpO2 98% 3 min recovery 95 142/72 SpO2 97% 6 min recovery 85 120/74 SpO2 97%
== END 2021-05-23 00:51 ==
PROVIDERS: PCP Family Medicine; Visit Provider Family Medicine
DX: R07.89 Other chest pain (principal)
CPT/HCPCS: 93017

== ENCOUNTER → 2021-12-13 11:05 | Outpatient (CLI) | payer BC, SELFPAY ==
--- NOTE | 2021-12-13 | DI.RAD_ITS ---
Exam(s) XR FOOT RT COMPLETE EXAM: XR FOOT RT COMPLETE CLINICAL HISTORY: PAIN IN RT FOOT--M79.671...INJURY. TECHNIQUE: 2D digital imaging was performed of the right foot. Three images were obtained. AP, obl ique and lateral views were obtained. COMPARISON: No exams were available for comparison FINDINGS: BONES: No acute fracture is present. No bony destructive lesion is seen. There is an enthesophyte at the Achilles insertion site. Mild spurring is seen at the talonavicular joint. There also appear to be old chronic well-circumscribed calcific densities at the talonavicular joint. JOINTS: No dislocation present. SOFT TISSUE: Normal. IMPRESSION: No acute abnormality. DATA REPOSITORY: RADIATION DOSE DELIVERED:
== END ==
PROVIDERS: PCP Family Medicine; Visit Provider Physician Assistant Medical
DX: M79.671 Pain in right foot (principal)
CPT/HCPCS: 73630

== ENCOUNTER 2022-11-25 11:18 | Outpatient (CLI) | payer BC, SELFPAY ==
--- NOTE | 2022-11-25 11:33 | DI.RAD_ITS ---
Exam(s) XR SHOULDER LT COMPLETE 2+V EXAM: XR SHOULDER LT COMPLETE 2+V CLINICAL HISTORY: LEFT SHOULDER PAIN. TECHNIQUE: 2D digital imaging was performed of the left shoulder. Three images were obtained. Axil estefani and Grashey views were obtained. COMPARISON: CR XR SHOULDER LT COMPLETE 2+V from 09/21/2020 FINDINGS: BONES: No acute fracture is present. No bony destructive lesion is seen. JOINTS: No dislocation present. There are degenerative changes seen at the glenohumeral joint with kishan int space narrowing and osteophytes. The acromioclavicular joint is well maintained. SOFT TISSUE: Normal. IMPRESSION: Mild degenerative changes at the glenohumeral joint. DATA REPOSITORY: RADIATION DOSE DELIVERED:
== END 2022-11-25 11:19 | disposition home or self-care (01) ==
LOC: DIORS 11:19
PROVIDERS: PCP Family Medicine; Visit Provider Student in an Organized Health Care Education/Training Program
DX: M75.42 Impingement syndrome of left shoulder (principal); M25.512 Pain in left shoulder
CPT/HCPCS: 73030

== ENCOUNTER → 2022-12-18 01:31 | Outpatient (CLI) | payer BC, SELFPAY ==
--- NOTE | 2022-12-18 07:30 | DI.MRI_ITS ---
Exam(s) MR UPPER JOINT LT WO EXAM: MR UPPER JOINT LT WO CLINICAL HISTORY: PAIN,LT ROTATOR CUFF TEAR,M75.102. TECHNIQUE: Multiplanar multisequence MRI was performed. COMPARISON: MR MR UPPER JOINT LT WO from 05/06/2021 CR XR SHOULDER LT COMPLETE 2+V from 11/25/2022 FINDINGS: BONES: There is no fracture or contusion pattern. JOINTS: There are mild degenerative changes seen at the acromioclavicular joint. Mild subchondral ed sampson and cysts are seen in the lateral aspect of the humeral head/greater tuberosity. The glenohumera l joint is normal. TENDONS: Supraspinatus: There is tendinosis of the supraspinatus tendon. There is hyperintense signal seen wi thin the mid substance of the tendon consistent with a tear. There is perpendicular hyperintense sig nal seen on the sagittal T2 fat suppressed images through the supraspinatus tendon which may be artif actual. Infraspinatus: Unremarkable. Subscapularis: Unremarkable. Teres Minor: Unremarkable. Biceps and Campo: Unremarkable. MUSCLES: Unremarkable. GLENOID LABRUM: There is some irregularity of the superior aspect of the labrum which may represent d egeneration. No definite evidence of an acute tear. SOFT TISSUES: Unremarkable. LIGAMENTS: Unremarkable. OTHER: There is fluid seen in the subacromial subdeltoid bursa. IMPRESSION: 1. There is hyperintense signal seen within the substance of the supraspinatus tendon suspicious for partial tear. 2. Irregularity of the superior labrum cyst spacious for degeneration. No definite acute tear is see n. 3. Degenerative changes seen in the shoulder. 4. Fluid seen in the subacromial subdeltoid bursa. DATA REPOSITORY:
== END ==
PROVIDERS: PCP Family Medicine; Visit Provider Student in an Organized Health Care Education/Training Program
DX: M19.012 Primary osteoarthritis, left shoulder (principal); M25.512 Pain in left shoulder
CPT/HCPCS: 73221

== ENCOUNTER 2023-03-19 08:59 | Day surgery (SDC) | payer BC, SELFPAY ==
[2023-03-19] VITALS (9 sets, daily range): BP systolic 95–140; BP diastolic 47–88; PULSE 52–65; RESP 14–18; TEMP 36.1–36.5; O2SAT 94–100; BMI 23.2
--- NOTE | 2023-03-19 07:19 | W.PM.DSUDISC ---
Date of service: 03/19/23 Time of Service: 15:00 Discharge Plan Disposition Patient Disposition: Home Discharge Details Attending Provider: Bang Rivera Primary Care Provider: Roby Sheriff Home Meds and New Rx's Prescriptions: New naproxen 250 mg tablet 250 - 500 mg PO BID PRN (Reason: Moderate pain) Qty: 40 0RF oxycodone 5 mg tablet 5 - 10 mg PO Q4H PRN (Reason: Moderate to severe pain) Qty: 18 0RF Continued naproxen sodium [Aleve] 220 mg capsule 220 mg PO BID PRN ibuprofen [Advil] 200 mg tablet 400 mg PO ONCE Discharge Instructions Additional Instructions: Surgery: Left shoulder arthroscopy with rotator cuff repair (supraspinatus), biceps tenodesis, extensive debridement (removal of prior SLAP repair suture), and subacromial decompression. Activity: For 6 weeks, you should keep your arm at your side in a neutral position at all times except for physical therapy. Do not try to lift or raise your arm using your own muscles. You should use the sling whenever you are out of the house. You may have to adjust the abduction pillow or remove it for comfort. At home it is best to remove the sling and rest the arm on a pillow at your side or support the operative side with your other hand. You may allow the arm to dangle at your side. A physical therapy prescription will be sent electronically to begin in about 3 weeks. STANDARD protocol. Prescriptions: Naproxen 250 mg take 1-2 every 12 hours with a meal as needed for moderate pain Oxycodone 5 mg take 1-2 every 4-6 hours as needed for severe pain You may use [id number] Tylenol (acetaminophen) as needed for mild pain. These pain medications may be taken all at once or in different combinations as needed. Also, recommend Colace (docusate) as a stool softener as surgery and pain medicine cause constipation. You may try phzt-jxn-[id number] diphenhydramine (Benadryl) 25-50 mg nightly as a sleep aid Dressings: Remove shoulder bandage after 3 days. Leave the sticky Steri-Strips in place until they fall off or remove them after you shower. Cover the incisions with Band-Aids or leave them open to air. You may shower after 5 days. Follow-up: 10-[address] Rivera You may take off the leg compression stockings this evening at home. You may also leave them on a few days longer if you have a history of leg swelling or edema. Let us know right away if you develop any redness, drainage, fevers, chest pain, or trouble breathing. Do not drink alcohol or drive for at least 24 hours after anesthesia. Please call the office during business hours with any questions or concerns. Discharge Orders Discharge Orders: Discharge Order (Routine); Ordered 03/19/23 Ordered By: Tristan Luna DS: Diagnosis Discharge Diagnosis (1) Left rotator cuff tear: Status: Acute (2) SLAP lesion of left shoulder: Status: Acute
--- NOTE | 2023-03-19 08:44 | W.ANESPRE ---
General Info Date of Service Date Performed: 03/19/23 Height: 6 ft 5 in Weight: 88.904 kg Body Mass Index (BMI): 23.2 Surgical Procedure: Operation Date: 03/19/23 11:55 Proposed Procedure Side Surgeon p Shoulder Rotator Cuff Arthroscopic w/Extensive Debridement, Subacromial Decompression, Possible Biceps Tenodesis Left Bang Rivera MD Meds Allergies and Home Medications Allergies Allergy/AdvReac Type Severity Reaction Status Date / Time No Known Allergies Allergy Verified 03/19/23 09:40 Home Medication Medication Instructions Recorded naproxen sodium 220 mg capsule 220 mg PO BID PRN 11/10/22 (Aleve) ibuprofen 200 mg tablet (Advil) 400 mg PO ONCE 03/18/23 Current Visit Medications: Current Medications Generic Name Dose Route Start Last Admin Trade Name Freq PRN Reason Stop Dose Admin Ringer's Solution 1,000 mls @ 30 mls/hr 03/19/23 06:00 IV 04/17/23 23:59 INFUSION LAURA Cefazolin Sodium/Dextrose 2 gm in 50 mls @ 100 mls/hr 03/19/23 06:00 Ancef Duplex IVPB 03/19/23 16:00 PREOP LAURA IV Miscellaneous Supplies 1 each 03/19/23 06:00 Iv Access IV 04/17/23 23:59 DIRECTED LAURA Oxycodone HCl 0 mg 03/19/23 07:19 Oxycodone 5 Mg Tab PO 04/18/23 07:18 Q3H PRN PRN Pain Sodium Chloride 0 ml 03/19/23 06:00 Normal Saline Flush 10 Ml Syr IV 04/17/23 23:59 PRN PRN Sodium Chloride 0 ml 03/19/23 06:00 Normal Saline 10 Ml Vial IJ 04/17/23 23:59 DIRECTED PRN Sterile Water 0 ml 03/19/23 06:00 Water,Injection,Sterile 10 Ml Vial IJ 04/17/23 23:59 DIRECTED PRN PFSH Active Problems Active Problems: Problem Status Onset Code Bursitis of left shoulder M75.52 Left rotator cuff tear M75.102 Plantar fasciitis of right foot M72.2 Hearing loss H91.90 Alcohol dependence F10.20 Right foot pain M79.671 Impingement syndrome of left shoulder M75.42 Tendinitis of long head of biceps brachii of left shoulder M75.22 Medical History Medical History Former tobacco use No significant past medical history Surgical History Surgical History H/O thumb surgery tendon repair History of knee surgery Meniscus repair SLAP lesion of left shoulder Tobacco Smoking/Tobacco Use Status: Current-Occasional Tobacco Type: cigars Alcohol Alcohol Intake: current Alcohol intake frequency: 0-2 drinks per day Alcohol type: wine and hard liquor Substance Use Substance use type: former substance user and marijuana Vital Signs and Lab Results Vital Signs Most Recent Vital Signs in EMR: Temp Pulse Resp BP Pulse Ox 36.4 C L 65 16 140/88 100 03/19/23 09:42 03/19/23 09:42 03/19/23 09:42 03/19/23 09:42 03/19/23 09:42 Lab Results Blood Type / Crossmatch: No Data to Display Complete Blood Count: No Data to Display Complete Metabolic Panel: No Data to Display Liver Function Panel: No Data to Display Coagulation Panel: No Data to Display Cardiac Panel: No Data to Display Arterial Blood Gas: No Data to Display Venous Blood Gas: No Data to Display Pancreas Panel: No Data to Display Thyroid Panel: No Data to Display Infectious Disease: No Data to Display Blood Cultures: No Data to Display Toxicology Panel: No Data to Display Imaging and Studies Imaging and Studies Study information below may be from another EMR and interpreted by another provider. Please see original notes in EMR for more complete details. EKG Summary: 06/07: sinus, ? RBBB. Stress Test Summary: 06/07: 13.48 METS, no evidence of ischemia. Anesthesia Assessment and Plan Anesthesia History Personal History: No History of Anesthesia Complications Family History: No Family History of Anesthesia Complications Exercise Tolerance Exercise Tolerance: Metabolic Equivalents>4 Cardiac & Pulmonary Exam Cardiac Exam: Normal S1/S2 Heart Sounds Pulmonary Exam: Clear Bilateral Breath Sounds Implantable Cardiac Device Does patient have a Pacemaker or an ICD?: No Airway Exam Known Difficult Airway: No Mallampati Class: 1 Mouth Opening: Normal (> 3cm) Thyromental Distance: Greater than 3 cm Neck Range of Motion: Full ROM Neck Circumference: Normal Teeth Condition: Normal Dentition ASA Classification ASA Score: ASA 2 Emergency Case?: No NPO Status NPO Status: NPO Clears >2 hours, Solids >8 hours Anesthesia Plan Resuscitation Status: Full Code Anesthesia Technique: General Anesthesia Airway Planned: Endotracheal Tube Pain Management: Surgeon and patient request nerve block Monitors Used: Standard Monitors Preoperative Comments:: 57 yo male for shoulder scope. Sig PMHx: former smoker, occ EtOH. denies major. Discussed risks, benefits or regional anesthesia. Discussed risk of nerve injury. He would like to proceed with brachial plexus block and GAETT.
[2023-03-19] MEDS: Lactated Ringers 1,000 ML 30 ML IV (09:47)
--- NOTE | 2023-03-19 10:23 | W.ANESNERVE ---
Nerve Block Single Injection Procedure Date and Time Date Performed: 03/19/23 Procedure Start: 10:53 Location Where Procedure Performed Procedure Location: Day Surgery Unit Reason Performed: Postoperative Analgesia Requesting Provider: Bang Rivera Timeout Performed Timeout Performed: Yes Monitoring Used ECG, Blood Pressure and SpO2 Sterility Sterility: Hand Hygiene, Surgical Cap, Surgical Mask, Sterile Gloves and Chlorhexidine Sedation Given During Procedure Sedation Given (Indicate Dose Given): Versed IV Dose:: 2 mg Patient Mental Status Patient Mental Status: Sedate with meaningful communication Nerve Block 1st Nerve Block: Laterality: Left Block Type: Interscalene Ultrasound Image Saved?: Yes Needle / Catheter Used: 100mm SonoPlex II Local Anesthetic Bolus (Indicate Dose Given): Lidocaine used for local infiltration of skin, Injected in 3-5ml increments after negative blood aspiration, Bupivacaine 0.5% Dose:: 10 mL and Exparel Dose:: 10 mL Additives (Indicate Dose Given): None Ultrasound: Sterile probe cover and gel used Nerve Stimulator: Supplement to Ultrasound use and No twitch or parasthesia noted < 0.5 mA Paresthesia: None Procedure Tolerated: No Complications Procedure Outcome: Successful Performed By: Naga Arizmendi
[2023-03-19] MEDS: ceFAZolin 2 GM/50 ML BAG IVPB (11:02)
[2023-03-19] MEDS: Tranexamic Acid 1,000 MG/10 ML VIAL 1000 MG (11:41)
[2023-03-19] MEDS: EPINEPHrine 10 MG/10 ML ML (13:06)
--- NOTE | 2023-03-19 13:54 | ROE_ITS ---
Date of service: 03/19/23 Time of Service: 15:00 Operative Note Operative Note DATE OF PROCEDURE: 03/19/23 PRE-OP DIAGNOSIS: Left: 1. Rotator cuff tear 2. Failed SLAP repair/ Biceps tendinopathy 3. Impingement POST-OP DIAGNOSIS: same PROCEDURE: Left: 1. Rotator cuff repair, CPT# 20735. This involved repair of the supraspinatus using anchors and sutures to reattach the rotator cuff back to the footprint of the greater tuberosity. 2. Arthroscopic biceps tenodesis, CPT# 27237. This involved arthroscopically suturing and reattaching the long head of the biceps tendon to the proximal h umerus at the superior margin of the bicipital groove with a screw at the correct tension. 3. Extensive debridement, CPT# 61792. This involved using arthroscopic hand instruments, power instruments, and radiofrequency instruments to remove prior permanent suture material about a failed SLAP repair, release the long head of the biceps tendon and debride areas of labral tearing, rotator interval syn ovitis, and mild chondromalacia about the superior glenoid within the glenohumeral joint anteriorly, superiorly and posteriorly. 4. Subacromial decompression with partial acromioplasty, CPT# 58952. This involved using arthroscopic power instruments and a radiofrequency wand to complete a bursectomy and smooth the undersurface of the acromion. The assistant nurse manager was medically required in order to help assist in techniques above, which require positioning the arm, holding the arthroscope, and manipulating multiple instruments and sutures at the same time. This cannot be done without the help of an experienced assistant nurse manager. SURGEON: Bang Rivrea MILITARY LOGISTICS SPECIALIST: Tristan Luna ANESTHESIA TYPE: General LMA/ETT and Primary Nerve Block Refer to Anesthesia Record ESTIMATED BLOOD LOSS: 5 PATHOLOGY: none sent COMPLICATIONS: None Patient was transported to: PACU Patient's condition: stable Implants: Arthrex: 4.75mm SwiveLocks x 1 Indications: The patient was diagnosed with the above conditions and appropriately indicated for surgical intervention. Please see complete medical record for details. Findings: Exam under anesthesia: Full range of motion, no instability Glenohumeral joint: Obvious failed prior SLAP repair with chondromalacia at the superior margin of the glenoid and unstable biceps anchor. Prior permanent suture material able to be withdrawn from the site of previous repair. No suture anchor or parts visualized. Remainder of biceps tendon relatively intact. Subscapularis intact. Mild central humeral head chondromalacia. Small articular central supraspinatus longitudinal defect. Subacromial space: Moderate bursitis. Complex medial supraspinatus tendon tear with thickened frayed tendon edges extension from about the central greater tuberosity longitudinally through the supraspinatus with additional [id number] transverse tearing as well. Infraspinatus intact Procedure Description: In the operating room, general anesthesia was induced. Bilateral shoulders were examined. The patient was positioned in the beachchair position. All bony prominences were well-padded. Preoperative antibiotics were administered. The shoulder was prepped and draped in the usual sterile fashion. The correct patient, procedure, and side of the procedure were all verified prior to incision. Starting through the posterior portal a standard complete diagnostic arthroscopy was performed of the glenohumeral joint including inspection of the long head of the biceps, anterior and superior labrum, subscapularis tendon, supraspinatus and infraspinatus tendons, and axillary recess. The glenoid and humeral head cartilage as well as the posterior labrum were inspected from an anterior viewing portal. Significant findings and interventions noted above. Of note, there were no signs of infection at all. Prior suture material was removed. Superior labrum was debrided as well as the superior glenoid chondromalacia. An all-arthroscopic suprapectoral biceps tenodesis was performed through an anterior portal using a Loop N Tack method with a SutureTape FiberLink cinched around and through the tendon. The biceps was tenotomized from the labrum and fixated with a suture anchor at the superior margin of the bicipital groove. The knotless additional repair suture was then passed around the biceps tendon stump before struggling back through the anchor eyelet mechanism adding additional compression and security to the repair. Starting through the posterior portal, the arthroscope was directed into the subacromial space. A lateral 50 yard line lateral portal was created. A combination of power instruments and a radiofrequency ablator were used to debride bursitis anteriorly, posteriorly, and laterally as well as expose the undersurface of the acromion. The coracoacromial ligament was partially released. The bursectomy was completed viewing laterally and working from posteriorly and the rotator cuff was thoroughly inspected with findings noted ab ove. The somewhat medial and complex supraspinatus tear was evaluated. Light debridement done of tendon edges. There was a longitudinal tear from about the mid greater tuberosity about a smaller area of transverse tearing somewhat medial and trans tenderness. At the central area of the defect the greater tuberosity was exposed and then prepared anteriorly and posteriorly to optimize bone and tendon healing. There was no significant propagation of the tear under the tendon in either direction. There was about full-thickness in the central area of longitudinal defect. The self retrieving suture passer used to place an inverted horizontal mattress FiberTape at the appropriate level medially incorporating the anterior and posterior aspects of the supraspinatus. In a ripstop configuration a suture tape FiberLink in cinch mode was placed centrally past the tape and the longitudinal extent of the tear. These repair sutures were provisionally tensioned showing good [id number] reduction of the anterior posterior aspect of the supraspinatus as well as reapposition from medial to lateral to the prepared area of the greater tuberosity. Punch was used followed by anchor placement with appropriate tension on all repair sutures and excellent reduction and compression of the repair. The knotless anchor eyelet mechanism did not function and was removed. Instead the 90 degree lasso was used to shuttle a suture tape at about the level of the suture anchor through the anterior and posterior layers of supraspinatus and secured together with SMC arthroscopic knot closing the defect over the suture anchor. The repair was inspected and stable through range of motion and testing. The undersurface of the acromion was opened up at this area of complex likely impingement related te aring from the bursal or undersurface acromion and additional bone removed to release growth healing factors. The shoulder was drained of arthroscopic fluid. All portal sites were copiously irrigated. These incisions were closed using 3-0 Monocryl in a buried fashion and then covered with Mastisol, Steri-Strips, Xeroform, dry gauze, and ABDs. The dressings were covered and secured with Medipore tape. The operative extremity was placed into a sling for immobilization. The patient awoke from anesthesia without complication and was transferred to the recovery room in a stable condition.
--- NOTE | 2023-03-19 14:27 | W.ANESPOSTOP ---
Postoperative Evaluation Date, Time and Location Date Performed: 03/19/23 Time Performed: 14:27 Patient Location: Day Surgery Unit Vital Signs Most Recent Imported Vital Signs: Most Recent Vital Signs Temp Pulse Resp BP Pulse Ox 36.5 C 54 L 16 115/70 100 03/19/23 14:16 03/19/23 14:16 03/19/23 14:16 03/19/23 14:16 03/19/23 14:16 Pain Score Most Recent Pain Score: Most Recent Pain Score Pain Level 0 03/19/23 14:16 Assessment Mental Status: Awake (Alert & Oriented to Patient Baseline) Airway and Respiratory Function: Patent airway with normal (patient baseline) respiratory exam Cardiovascular Function: Hemodynamically Stable Hydration Status: Adequately Hydrated Nausea & Vomiting: No Nausea or Vomiting Pain: Pain is tolerable per patient Peripheral Nerve Block: Regional nerve block not resolved at time of post operative discharge
== END 2023-03-19 09:00 | disposition home or self-care (01) ==
LOC: SUR 08:59
PROVIDERS: PCP Family Medicine; Visit Provider Student in an Organized Health Care Education/Training Program
PROC: (CPT 29827; principal; 2023-03-19 11:45)
DX: M75.102 Unspecified rotator cuff tear or rupture of left shoulder, not specified as traumatic (principal); S43.432A Superior glenoid labrum lesion of left shoulder, initial encounter; X58.XXXA Exposure to other specified factors, initial encounter; M75.42 Impingement syndrome of left shoulder; Z87.891 Personal history of nicotine dependence
CPT/HCPCS: 29827; 29828; 29823; 29826; 76942; C1781; C9290; J0665; J0690; J1100; J2250; J2371; J2405; J2704

== ENCOUNTER 2023-12-09 15:47 | Outpatient (CLI) | payer BC, SELFPAY ==
--- NOTE | 2023-12-09 08:15 | DI.RAD_ITS ---
Exam(s) XR KNEE LT 3V AP,LAT,GLORIA EXAM: XR KNEE LT 3V AP,LAT,GLORIA CLINICAL HISTORY: LEFT KNEE PAIN. TECHNIQUE: 2D digital imaging was performed of the left knee. Three images were obtained. Merchant ,AP and lateral views were obtained. COMPARISON: CR XR KNEE RT 3V AP,LAT,GLORIA from 12/09/2023 FINDINGS: BONES: No acute fracture is present. No bony destructive lesion is seen. There are enthesophytes at the anterior patella. JOINTS: The knee is normally aligned. There is mild spurring at the lateral patella. There is mild narrowing of the medial femoral tibial joint. No joint effusion is seen. SOFT TISSUE: Dystrophic calcifications are seen adjacent to the anterior tibial tuberosity. IMPRESSION: Mild arthrosis of the left knee. DATA REPOSITORY: RADIATION DOSE DELIVERED:
--- NOTE | 2023-12-09 08:15 | DI.RAD_ITS ---
Exam(s) XR KNEE RT 3V AP,LAT,GLORIA EXAM: XR KNEE RT 3V AP,LAT,GLORIA CLINICAL HISTORY: RIGHT KNEE PAIN. TECHNIQUE: 2D digital imaging was performed of the right knee. Three views obtained. Merchant, AP an d lateral views were obtained. COMPARISON: No exams were available for comparison FINDINGS: BONES: No acute fracture is present. No bony destructive lesion is seen. There are enthesophytes at t he anterior superior patella. JOINTS: The knee is normally aligned. No joint effusion is seen. SOFT TISSUE: Vascular calcifications are present. IMPRESSION: No significant degenerative changes seen in the right knee. DATA REPOSITORY: RADIATION DOSE DELIVERED:
== END 2023-12-09 15:48 | disposition home or self-care (01) ==
LOC: DIORS 15:47
PROVIDERS: PCP Family Medicine; Visit Provider Student in an Organized Health Care Education/Training Program
DX: M22.41 Chondromalacia patellae, right knee (principal); M22.42 Chondromalacia patellae, left knee
CPT/HCPCS: 73562

== ENCOUNTER 2023-12-28 18:38 | Outpatient (REF) | payer BC, SELFPAY ==
[2023-12-28 16:53] LABS: LDL CHOLESTEROL 51 mg/dL (<100)
== END 2023-12-28 18:39 | disposition home or self-care (01) ==
LOC: NCHCN 18:38
PROVIDERS: PCP Family Medicine; Visit Provider Family Medicine
DX: Z00.00 Encounter for general adult medical examination without abnormal findings (principal)
CPT/HCPCS: 83721